=== PATIENT | female | born 2000 | race Caucasian/White ===

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

== ENCOUNTER 2021-09-26 08:59 | Emergency (ER) | payer OTHER ==
[2021-09-26 09:16] VITALS: BP 117/69
--- NOTE | 2021-09-26 09:36 | ED Physician Documentation ---
PD HPI URI - Stated complaint Stated Complaint: COUGH/NAUSEA/BODY ACHES - Chief complaint Chief Complaint: Heent - History obtained from History obtained from: Patient - History of Present Illness Timing - onset: How many weeks ago (1) Timing duration: Weeks (1) Timing details: Gradual onset, Still present Associated symptoms: Nasal congestion, Rhinorrhea, Dry cough Contributing factors: Sick contact (has covid) Improves by: Rest, Medication Worsened by: Activity Similar symptoms before: Has not had sx before Recently seen: Other (37 wks ) - Additional information Additional information: 21-year-old female is 37 weeks has developed Covid. She is immunized and not boosted. She is having persistent symptoms of fatigue cough and aches. She has some chest wall pain with breathing she is not overtly short of breath. She has her routine care without complications for this . Review of Systems Constitutional: reports: Fever, Myalgias, Fatigue, Sweats Eyes: denies: Decreased vision Ears: denies: Ear pain Nose: reports: Congestion Throat: denies: Sore throat Cardiac: reports: Chest pain / pressure. denies: Palpitations Respiratory: reports: Dyspnea, Cough GI: denies: Abdominal Pain, Nausea, Vomiting : denies: Dysuria PD PAST MEDICAL HISTORY - Past Medical History Neuro: Migraines - Past Surgical History Past Surgical History: No - Present Medications Home Medications: Ambulatory Orders Medication Instructions Recorded Confirmed Ondansetron Odt [Zofran] 4 mg TL Q6H PRN #10 tablet 11/13/20 cephALEXin [Keflex] 500 mg PO Q6H #20 cap 11/13/20 Dexamethasone [Decadron] 6 mg PO DAILY #6 tablet 09/26/21 - Allergies Allergies/Adverse Reactions: Allergies Allergy/AdvReac Type Severity Reaction Status Date / Time No Known Drug Allergies Allergy Verified 09/26/21 09:15 - Social History Does the pt smoke?: No Smoking Status: Never smoker Does the pt have substance abuse?: No PD ED PE NORMAL - Vitals Vital signs reviewed: Yes (normal) - General General: Alert and oriented X 3, No acute distress, Well developed/nourished - HEENT HEENT: Atraumatic, PERRL, EOMI, Ears normal, Moist mucous membranes, Pharynx benign, Dentition benign - Neck Neck: Supple, no meningeal sign, No bony TTP - Cardiac Cardiac: RRR, No murmur - Respiratory Respiratory: No respiratory distress, Clear bilaterally - Abdomen Abdomen: Soft, Non tender, Other (gravid uterus FHT 143) - Back Back: No CVA TTP, No spinal TTP - Derm Derm: Normal color, Warm and dry, No rash - Extremities Extremities: No deformity, No edema - Neuro Neuro: Alert and oriented X 3, card writer hand 2-12 intact, No motor deficit, No sensory deficit, Normal speech Eye Opening: Spontaneous Motor: Obeys Commands Verbal: Oriented GCS Score: 15 - Psych Psych: Normal mood, Normal affect Results - Vitals Vitals: Vital Signs - 24 hr 09/26/21 09:08 Temperature 36.3 C L Heart Rate 92 Respiratory 9 L Rate Blood Pressure 117/69 O2 Saturation 98 Oxygen O2 Source Room air PD MEDICAL DECISION MAKING - ED course Complexity details: reviewed results, re-evaluated patient, considered differential, d/w patient ED course: 21-year-old female with COVID with symptoms 8 days into her illness is 37 weeks . She is given a weeklong course of dexamethasone 6 mg daily. Departure - Departure Disposition: 01 Home, Self Care Clinical Impression: COVID-19 affecting in third trimester Condition: Stable Instructions: COVID-19 [facility], COVID-19 [facility] Department Statement Follow-Up: EVERETTE KIMBROUGH ARNP [Physician No Access] - Prescriptions: Dexamethasone [Decadron] 6 mg PO DAILY #6 tablet Comments: Shannan, today you are not hypoxic and do not need to be admitted into the hospital for Covid. You still have Covid and may take some time to resolve this infection the important things are to treat any fever with tylenol and to make certain that you are hydrated. In addition we have provided dexamethasone which is an anti-inflammatory steroid to take for the next week. Side effects of this may make it difficult to sleep and administration of Benadryl may help. T his medication has been e-[place] [facility] [place] Discharge Date/Time: 09/26/21 09:50
== END 2021-09-26 09:50 | disposition home or self-care (01) ==
LOC: ED 08:59
DX: O98.513 Other viral diseases complicating pregnancy, third trimester (principal); U07.1 COVID-19; Z3A.37 37 weeks gestation of pregnancy
CPT/HCPCS: 99282; 99283

== ENCOUNTER 2022-08-04 16:15 | Emergency (ER) | payer OTHER ==
--- NOTE | 2022-08-04 16:38 | ED Physician Documentation ---
History of Present Illness - Stated complaint Stated Complaint: FEVER, COUGH, SOA - Chief complaint Chief Complaint: General - Additonal information Additional information: 21-year-old female presents emergency department for evaluation of 24 hours cough cold and congestion. She is concerned she could have bronchitis or pneumonia. She reports that her 9-month-old son tested positive for COVID on Saturday and she began getting symptoms yesterday. She has had subjective fevers chills and myalgias. She is taken Tylenol and ibuprofen without relief of symptoms. Does not have a history of hypertension, diabetes or asthma. She does vape. Review of Systems Constitutional: reports: Fever, Chills, Myalgias, Fatigue Cardiac: denies: Chest pain / pressure, Palpitations Respiratory: reports: Dyspnea, Cough GI: reports: Reviewed and negative : reports: Reviewed and negative Skin: reports: Reviewed and negative Musculoskeletal: reports: Reviewed and negative PD PAST MEDICAL HISTORY - Past Medical History Neuro: Migraines - Past Surgical History Past Surgical History: No - Present Medications Home Medications: Ambulatory Orders Medication Instructions Recorded Confirmed Ondansetron Odt [Zofran] 4 mg TL Q6H PRN #10 tablet 11/13/20 cephALEXin [Keflex] 500 mg PO Q6H #20 cap 11/13/20 dexAMETHasone [Decadron] 6 mg PO DAILY #6 tablet 09/26/21 Benzonatate [Tessalon] 200 mg PO TID PRN #20 cap 08/04/22 Oseltamivir Phosphate [Tamiflu] 75 mg PO BID #10 cap 08/04/22 - Allergies Allergies/Adverse Reactions: Allergies Allergy/AdvReac Type Severity Reaction Status Date / Time No Known Drug Allergies Allergy Verified 08/04/22 16:18 - Social History Does the pt smoke?: No Smoking Status: Never smoker Does the pt have substance abuse?: No PD ED PE NORMAL - General General: Alert and oriented X 3, No acute distress - HEENT HEENT: Atraumatic, Ears normal, Moist mucous membranes - Neck Neck: Supple, no meningeal sign, No adenopathy - Cardiac Cardiac: RRR, No murmur - Respiratory Respiratory: No respiratory distress, Clear bilaterally, Other (Deep bronchial sounding cough though unremarkable cardiopulmonary auscultation) - Abdomen Abdomen: Normal bowel sounds, Soft - Back Back: No CVA TTP, No spinal TTP - Derm Derm: Normal color, Warm and dry - Extremities Extremities: No deformity, No tenderness to palpate, Normal ROM s pain - Neuro Neuro: Alert and oriented X 3, wire brush maker 2-12 intact Eye Opening: Spontaneous Motor: Obeys Commands Verbal: Oriented GCS Score: 15 Results - Vitals Vitals: Vital Signs - 24 hr 08/04/22 08/04/22 16:18 17:40 Temperature 36.8 C Heart Rate 84 75 Respiratory 16 18 Rate Blood Pressure 118/71 116/76 O2 Saturation 97 99 Oxygen O2 Source Room air - Labs Labs: Laboratory Tests 08/04/22 16:55 Nasal Adenovirus (PCR) NOT DETECTED Nasal B. parapertussis DNA (PCR) NOT DETECTED Nasal Coronavir 229E PCR NOT DETECTED Nasal Coronavir HKU1 PCR NOT DETECTED Nasal Coronavir NL63 PCR NOT DETECTED Nasal Coronavir OC43 PCR NOT DETECTED Nasal Enterovir/Rhinovir PCR NOT DETECTED Nasal Influenza A H3 PCR DETECTED A Nasal Influenza B PCR NOT DETECTED Nasal Parainfluen 1 PCR NOT DETECTED Nasal Parainfluen 2 PCR NOT DETECTED Nasal Parainfluen 3 PCR NOT DETECTED Nasal Parainfluen 4 PCR NOT DETECTED Nasal RSV (PCR) NOT DETECTED Nasal B.pertussis DNA PCR NOT DETECTED Nasal C.pneumoniae (PCR) NOT DETECTED Abiodun Human Metapneumo PCR NOT DETECTED Nasal M.pneumoniae (PCR) NOT DETECTED Nasal SARS-CoV-2 (PCR) NOT DETECTED - Rads (name of study) cxr Radiology: Final report received (No acute cardiopulmonary process) PD MEDICAL DECISION MAKING - ED course Complexity details: reviewed results, re-evaluated patient, considered differential, d/w patient ED course: 21-year-old female presents to the emergency department for evaluation of acute cough and congestion that began yesterday. Her 9-month-old son at home is positive for COVID. On exam she sounds congested but has unremarkable cardiopulmonary auscultation. A chest x-ray was negative for findings of pneumonia pneumothorax or pleural effusion. A respiratory PCR panel is pending. Patient would like outpatient Paxlovid if she is COVID-positive I will follow-up the results with her and prescribe as appropriate. We discussed the usual routine conservative care measures of viral upper respiratory infections. I am deferring antibiotics given lack of findings to suggest pneumonia on chest x-ray. I am sending a prescription of Tessalon Perles to the pharmacy to aid in cough. We have discussed the importance of ibuprofen, Tylenol and hydration. Otherwise emergent return precautions dis cussed 1809: Patient has tested positive for influenza A. I sent prescription for Tamiflu to the [facility] in [place]. I also notified the patient via phone of the test results. We reiterated routine conservative care measures as well as emergent return precautions Departure - Departure Disposition: 01 Home, Self Care Clinical Impression: Viral URI with cough, Influenza A Condition: Stable Record reviewed to determine appropriate education?: Yes Prescriptions: Oseltamivir Phosphate [Tamiflu] 75 mg PO BID #10 cap Benzonatate [Tessalon] 200 mg PO TID PRN #20 cap PRN Reason: Cough Comments: JOAQUIM you came to the emergency department today concerned that you could have COVID, or bronchitis or pneumonia. Your son is positive for COVID at home. We will call you this evening only if you are COVID testing is positive. If it is we will notify you and I will send a prescription for an outpatient oral antiviral medication called Roopa to the [facility] in [place]. You must continue to quarantine until you know your test results. Your lungs sound clear today in the emergency department your oxygen levels are normal. We did do a chest x-ray which also shows no findings to suggest pneumonia, pleural effusion or heart failure. I am sending a prescription for Tessalon Perles a cough suppressant to the [facility] in [place]. In general I recommend that you stay well-hydrated. You can continue to take Tylenol or ibuprofen for any body aches fevers and discomfort. Return to the emergency department if you develop any severe respiratory distress Discharge Date/Time: 08/04/22 17:41
--- NOTE | 2022-08-04 17:07 | XRAY Report ---
PROCEDURE: Chest 1 View X-Ray INDICATIONS: chest pain TECHNIQUE: One view of the chest was acquired. COMPARISON: None. FINDINGS: Surgical changes and devices: None. Lungs and pleura: No pleural effusions or pneumothorax. Lungs are clear. Mediastinum: Mediastinal contours appear normal. Heart size is normal. Bones and chest wall: No suspicious bony lesions. Overlying soft tissues appear unremarkable. IMPRESSION: No acute process. Reviewed by: Clement Bose MD on 08/04/2022 4:06 PM [facility] Approved by: Clement Bose MD on 08/04/2022 4:06 PM [facility] Station ID: [id number]
[2022-08-04 17:41] VITALS: BP 116/76
[2022-08-04 18:03] LABS: B. PARAPERTUSSIS- RESP PCR PAN NOT DETECTED; B. PERTUSSIS- RESP PCR PANEL NOT DETECTED; C. PNEUMONIAE- RESP PCR PANEL NOT DETECTED; CORONAVIRUS 229E-RESP PCR NOT DETECTED; CORONAVIRUS HKU1-RESP PCR NOT DETECTED; CORONAVIRUS NL63-RESP PCR NOT DETECTED; CORONAVIRUS OC43-RESP PCR NOT DETECTED; HUMAN METAPNEUMOVIRUS NOT DETECTED; INFLUENZA A H3- RESP PCR PANEL DETECTED; INFLUENZA B - RESP PCR PANEL NOT DETECTED; M. PNEUMONIAE- RESP PCR PANEL NOT DETECTED; PARAINFLUENZA VIRUS 1 NOT DETECTED; PARAINFLUENZA VIRUS 2 NOT DETECTED; PARAINFLUENZA VIRUS 3 NOT DETECTED; PARAINFLUENZA VIRUS 4 NOT DETECTED; RHINOVIRUS/ENTEROVIRUS NOT DETECTED; RSV- RESP PCR PANEL NOT DETECTED; SARS-CoV-2 -RESP PCR PANEL NOT DETECTED
== END 2022-08-04 17:41 | disposition home or self-care (01) ==
LOC: ED 16:15
DX: J10.1 Influenza due to other identified influenza virus with other respiratory manifestations (principal); Z20.822 Contact with and (suspected) exposure to COVID-19
CPT/HCPCS: 87633; 99282; 99284